=== PATIENT | female | born 1955 | race Caucasian/White ===

== ENCOUNTER → 2018-05-25 | Day surgery (SDC) | payer OTHER ==
[2018-05-25 11:51] VITALS: RESP 12; TEMP 98.3
[2018-05-25 13:02] VITALS: BP 119/76; PULSE 76
--- NOTE | 2018-05-25 17:33 | USB ---
EXAMINATION TYPE: US biopsy breast VAD LT, Postprocedure MG diagnostic mammo LT wo CAD DATE OF EXAM: 05/25/2018 CLINICAL HISTORY: 62-year-old female N60.02 Cyst of left breast. Referred for ultrasound-guided biopsy. TECHNIQUE: Ultrasound guided core biopsy of the left breast. COMPARISON: Outside exams from 04/17/2018 and 04/13/2018 FINDINGS: The procedure of ultrasound guided core biopsy was explained to the patient. Benefits, alternatives, and risks were discussed. An informed consent was then obtained. The patient was placed in supine positioning for imaging and for the procedure. The overlying skin was prepped and draped in usual sterile fashion. Lidocaine buffered with bicarbonate was used as anesthetic into the skin and subcutaneous tissue up to area of concern in the 2:00 left breast. Of note, the lesion in question had a more cystic appearance on the present exam. This still appeared irregular in shape so we continued with biopsy. Under ultrasound guidance, a 13-gauge vacuum-assisted mammotome Elite biopsy gun device was used to obtain 4 core samples. Following this, a ribbon clip was left in lesion. The lesion collapsed after the first 2 samples which further suggests a cyst. The patient tolerated the procedure well without any immediate complication. The patient was kept in the radiology department for short stay after the procedure and then discharged home in stable condition. Post procedure mammogram shows the ribbon clip in the upper outer quadrant near the area of focal asymmetry. IMPRESSION: Successful, uncomplicated ultrasound guided core biopsy of area of concern in the 2:00 left breast, full pathology results to follow. We note that the lesion appeared more cystic on the present exam and collapsed after the first 2 passes suggesting a benign etiology. Pathology Results: Benign BREAST, LEFT, 2:00, ULTRASOUND GUIDED CORE BIOPSY: Fibrocystic changes including cysts, fibrosis, adenosis, aprocine metaplasia and mild usual type ductal hyperplasia. Recommendation Follow up mammogram and ultrasound of the left breast in 6 months. STEPH
== END ==
LOC: RADUSWWP 11:20
PROVIDERS: ATTEND Family Medicine
DX: N60.32 Fibrosclerosis of left breast (principal); N60.22 Fibroadenosis of left breast; N60.82 Other benign mammary dysplasias of left breast; N60.92 Unspecified benign mammary dysplasia of left breast; Z88.0 Allergy status to penicillin; Z88.2 Allergy status to sulfonamides
CPT/HCPCS: 88305; 77065; 19083; A4648; J2001

== ENCOUNTER → 2019-06-22 | Outpatient (CLI) | payer OTHER ==
--- NOTE | 2019-06-22 11:03 | MM ---
Reason for exam: additional evaluation requested from prior study. Last mammogram was performed 1 year and 1 month ago. History: Patient is postmenopausal. Benign US biopsy breast VAD LT of the left breast, May 25, 2018. Physical Findings: Nurse did not find any significant physical abnormalities on exam. MG Diagnostic Mammo w CAD BRIGIDO Bilateral CC and MLO view(s) were taken. Prior study comparison: May 25, 2018, left breast MG diagnostic mammo LT wo CAD. The breast tissue is heterogeneously dense. This may lower the sensitivity of mammography. There is a right upper outer quadrant middle depth mass, increased in size from prior of 2017, now 1.5 x 1.3cm. Left upper outer quadrant biopsy marker. Right lateral anterior depth asymmetry. These results were verbally communicated with the patient and result sheet given to the patient on 06/22/19. ASSESSMENT: Incomplete: need additional imaging evaluation, BI-RAD 0 RECOMMENDATION: Ultrasound of both breasts. (upper outer quadrant)
--- NOTE | 2019-06-22 11:17 | USB ---
Reason for exam: additional evaluation requested from prior study. History: Patient is postmenopausal. Benign US biopsy breast VAD LT of the left breast, May 25, 2018. US Breast Limited BILAT Right limited breast ultrasound including focal area of concern, retroareolar and axilla demonstrates a 1.0 x 0.7 x 0.8cm lesion at 9 o'clock anechoic although enhancement is suboptimal for size and growth from prior, aspiration recommended and a 0.6 x 0.3 x 0.6cm mixed lesion at 10 o'clock, appears as a complicated cyst. Left limited breast ultrasound including focal area of concern, retroareolar and axilla demonstrates a 0.3 x 0.4 x 0.3cm lesion too small to characterize at 1 o'clock, likely a small cyst, a clip at 2 o'clock and a 0.5 x 0.3 x 0.5cm mixed lesion at 2 o'clock, appears as a complicated cyst. These results were verbally communicated with the patient and result sheet given to the patient on 06/22/19. ASSESSMENT: Suspicious, BI-RAD 4 RECOMMENDATION: Aspiration of the right breast. Called Dr. Levi's office with mammographic findings. Aspiration scheduled for 07/12/19 at 8:00. PRELIMINARY REPORT CALLED AND FAXED TO DR. LEVI ON 06/22/19.
== END | disposition home or self-care (01) ==
LOC: RADMAMWWP 08:24
PROVIDERS: ATTEND Family Medicine
DX: R92.8 Other abnormal and inconclusive findings on diagnostic imaging of breast (principal)
CPT/HCPCS: 77066

== ENCOUNTER → 2019-07-12 | Day surgery (SDC) | payer OTHER ==
[2019-07-12 07:27] VITALS: RESP 16
[2019-07-12 08:45] VITALS: BP 147/83; PULSE 81; TEMP 98.4
--- NOTE | 2019-07-12 09:09 | USB ---
EXAMINATION TYPE: US breast aspiration single RT, MG diagnostic mammo RT wo CAD DATE OF EXAM: 07/12/2019 COMPARISON: Bilateral breast ultrasound dated 06/22/2019 CLINICAL HISTORY: R92.8 Abnormal mammogram. FINDINGS: The procedure of ultrasound guided aspiration was explained to the patient. Benefits, alternatives, and risks were discussed. An informed consent was then obtained. Preprocedural timeout was performed. The patient was placed in supine positioning for imaging and for the procedure. The overlying skin was prepped and draped in usual sterile fashion. 10 cc of 1% lidocaine was used as anesthetic into the skin and subcutaneous tissue up to the probable cyst measuring 1.0 cm at the 9:00 position in the right breast. Under ultrasound guidance, an 18-gauge spinal needle was used to aspirate the cyst within the initial pass yielding approximately 1.5 cc of blackish thin fluid. Following this, a coil-shaped biopsy marker was left at the site of aspiration. The patient tolerated the procedure well without any immediate complication. The patient was kept in the radiology department for short stay after the procedure and then discharged home in stable condition. Post procedure mammogram shows the coil-shaped biopsy marker at the site of the resolved right breast mass. IMPRESSION: Successful, uncomplicated ultrasound guided cyst aspiration of a 1 cm cystic mass at the 9:00 position in the right breast yielding scant blackish fluid, full pathology results to follow. Pathology Results: Benign RIGHT BREAST CYST ASPIRATE: Cyst fluid with hemorrhage and abundant acute inflammation suggestive of breast abscess/duct abscess with numerous mildly atypical epithelioid cells likely consistent with reactive duct lining cells or reactive duct lining cells with apocrine metaplasia. If clinically appropriate, treatment/resolution of the acute inflammatory cyst with continued clinical surveillance/biopsy if a residual mass lesion is seen. Recommendation Follow up ultrasound of the right breast in 6 months. Collapse of entire cyst on aspiration. MTDD
== END ==
LOC: RADUSWWP 07:07
PROVIDERS: ATTEND Family Medicine
DX: N60.01 Solitary cyst of right breast (principal)
CPT/HCPCS: 88108; 88305; 77065; 76942; 19000; A4648; J2001

== ENCOUNTER → 2020-04-24 | Outpatient (CLI) | payer OTHER ==
--- NOTE | 2020-04-24 08:23 | USB ---
Reason for exam: follow-up at short interval from prior study. History: Patient is postmenopausal. Benign US breast aspiration single RT of the right breast, July 12, 2019. Benign US biopsy breast VAD LT of the left breast, May 25, 2018. Physical Findings: Nurse Summary: all soft, nodular, movable (nurse ts). US Breast Limited RT Technologist: Raven Lee Right limited breast ultrasound including focal area of concern, retroareolar and axilla demonstrates a 0.5 x 0.6 x 0.4cm oval, cystic lesion at 12 o'clock internal echoes likely debris. Scanned 9-12 o'clock. Annual exam can be performed in diagnostic clinic. These results were verbally communicated with the patient and result sheet given to the patient on 04/24/20. ASSESSMENT: Probably benign, BI-RAD 3 RECOMMENDATION: Follow-up diagnostic mammogram of both breasts in 2 months. Back on schedule for June 2020.
== END | disposition home or self-care (01) ==
LOC: RADUSWWP 07:05
PROVIDERS: ATTEND Family Medicine
DX: R92.8 Other abnormal and inconclusive findings on diagnostic imaging of breast (principal)

== ENCOUNTER → 2020-05-13 | Outpatient (CLI) | payer OTHER ==
--- NOTE | 2020-05-13 17:15 | MR ---
EXAMINATION TYPE: MR iac wo/w con DATE OF EXAM: 05/13/2020 COMPARISON: None HISTORY: Acoustic nerve disorder CONTRAST: Standard multiplanar, multisequence MRI departmental protocol utilizing 13 mL intravenous Gadavist ga dolinium contrast. Ventricles have normal size. There is no mass effect nor midline shift. There is no sign of intracran ial hemorrhage. Diffusion images show no evidence of an acute infarct. Brainstem is intact. The carlson- white matter structures have fairly normal signal pattern. There is no evidence of cerebral edema. Th e internal auditory canals appear normal. There is no evidence of cerebellopontine angle mass. Acoust ic and vestibular nerves have normal size. Contrast images show no pathologic enhancement. Corpus callosum is intact. Sella turcica appears normal. Optic chiasm is normal. Pituitary stalk is i n the midline. IMPRESSION: Normal MR scan of the brain. No evidence of posterior fossa abnormality.
== END | disposition home or self-care (01) ==
LOC: RADMRIMAIN 08:05
PROVIDERS: ATTEND Otolaryngology
DX: H93.3X2 Disorders of left acoustic nerve (principal)
CPT/HCPCS: 70553; A9585

== ENCOUNTER → 2020-08-08 | Outpatient (CLI) | payer OTHER ==
--- NOTE | 2020-08-08 10:04 | MM ---
Reason for exam: additional evaluation requested from prior study. Last mammogram was performed 1 year and 1 month ago. History: Patient is postmenopausal. Benign US breast aspiration single RT of the right breast, July 12, 2019. Benign US biopsy breast VAD LT of the left breast, May 25, 2018. Physical Findings: Nurse did not find any significant physical abnormalities on exam. MG Diagnostic Mammo w CAD BRIGIDO Bilateral CC and MLO view(s) were taken. Prior study comparison: July 12, 2019, right breast MG diagnostic mammo RT wo CAD. June 22, 2019, bilateral MG diagnostic mammo w CAD BRIGIDO. The breast tissue is heterogeneously dense. This may lower the sensitivity of mammography. Benign appearing calcifications in the left breast. Previous mammotome biopsy in the right and left breast. There is chronic nodularity in the right breast. These results were verbally communicated with the patient and result sheet given to the patient on 08/08/20. ASSESSMENT: Benign, BI-RAD 2 RECOMMENDATION: Routine screening mammogram of both breasts in 1 year.
== END | disposition home or self-care (01) ==
LOC: RADMAMWWP 07:42
PROVIDERS: ATTEND Family Medicine
DX: R92.8 Other abnormal and inconclusive findings on diagnostic imaging of breast (principal)
CPT/HCPCS: 77066

== ENCOUNTER → 2021-08-16 | Outpatient (CLI) | payer OTHER ==
--- NOTE | 2021-08-17 13:51 | MM ---
Reason for exam: screening (asymptomatic). Last mammogram was performed 1 year ago. History: Patient is postmenopausal. Benign US breast aspiration single RT of the right breast, July 12, 2019. Benign US biopsy breast VAD LT of the left breast, May 25, 2018. Physical Findings: A clinical breast exam by your physician is recommended on an annual basis and results should be correlated with mammographic findings. MG 3D Screening Mammo W/Cad Bilateral CC and MLO view(s) were taken. Prior study comparison: August 08, 2020, bilateral MG diagnostic mammo w CAD BRIGIDO. July 12, 2019, right breast MG diagnostic mammo RT wo CAD. The breast tissue is heterogeneously dense. This may lower the sensitivity of mammography. Stable benign calcifications. There is no discrete abnormality. No significant changes when compared with prior studies. ASSESSMENT: Benign, BI-RAD 2 RECOMMENDATION: Routine screening mammogram of both breasts in 1 year.
== END | disposition home or self-care (01) ==
LOC: RADMAMWWP 08:39
PROVIDERS: ATTEND Family Medicine
DX: Z12.31 Encounter for screening mammogram for malignant neoplasm of breast (principal)
CPT/HCPCS: 77063; 77067

== ENCOUNTER → 2022-09-04 | Outpatient (CLI) | payer MEDICARE ==
--- NOTE | 2022-09-04 09:25 | BD ---
EXAMINATION TYPE: Axial Bone Density DATE OF EXAM: 09/04/2022 COMPARISON: BASELINE CLINICAL HISTORY: 66 years old Female. ICD-10 CODE: Z13.820 SCREENING FOR OSTEOPOROSIS Height: 65 Weight: 268 FRAX RISK QUESTIONS: Alcohol (3 or more units per day): NO Family History (Parent hip fracture): YES MOTHER History of Fracture in Adulthood: NO Secondary Osteoporosis: NO Rheumatoid Arthritis: NO Current Tobacco Use: NO RISK FACTORS HISTORY OF: Family History of Osteoporosis: NO Active: YES Diet low in dairy products/other sources of calcium: NO Postmenopausal woman: YES 48 YRS OLD Lost more than 2 inches in height since high school: NO Frequent falls: NO Poor Health: NO MEDICATIONS: Thyroid Medications: YES Which medication: Synthroid How Lon+YEARS Additional Medications: YES VIT D , CHOLESTEROL , HBP EXAM MEASUREMENTS: Bone mineral densitometry was performed using the [employer]pex System. Bone mineral density as measured about the Lumbar spine is: ----- L1-L4(G/cm2): 1.174 T Score Values are as follows: ----- L1: -0.8 ----- L2: -0.1 ----- L3: -0.6 ----- L4: 1.0 ----- L1-L4: -0.1 Bone mineral density has: BASELINE Bone mineral density about the R hip (g/cm2): 1.186 Bone mineral density about the L hip (g/cm2): 1.237 T Score values are as follows: -----R Neck: 0.2 -----L Neck: 0.7 -----R Total: 1.4 -----L Total: 1.8 Bone mineral density BASELINE FRAX%s: The graph provided illustrates a 10.9% chance for a major osteoporotic fx and a 0.2% chance f or the hips probability for fx in 10 years time. IMPRESSION: Normal (Values between +1 and -1 indicate normal bone mass). Consider repeating this study in 5 year s or sooner if there is some new clinical indication. NOTE: T-SCORE=SD OF THE YOUNG ADULT MEAN.
--- NOTE | 2022-09-05 08:35 | MM ---
Reason for Exam: Screening (asymptomatic). Last screening mammogram was performed 12 month(s) ago. Patient History: Menarche at age 11. First Full-Term at age 31. Late child-bearing (after 30). Postmenopausal. 07/12/2019, Benign Cyst Aspiration on the right side. 05/25/2018, Benign Core Biopsy on the left side. Risk Values: Shannan 5 year model risk: 3.0%. NCI Lifetime model risk: 11.0%. Prior Study Comparison: 07/12/2019 Right Diagnostic Mammogram, [facility]. 08/08/2020 Bilateral Diagnostic Mammogram, [facility]. 08/16/2021 Bilateral Screening Mammogram, [facility]. Tissue Density: The breast tissue is heterogeneously dense. This may lower the sensitivity of mammography. Findings: Analyzed By CAD. Bilateral biopsy clips. There is no suspicious group of microcalcifications or new suspicious mass in either breast. Overall Assessment: Negative, BI-RAD 1 Management: Screening Mammogram of both breasts in 1 year. A clinical breast exam by your physician is recommended on an annual basis and results should be correlated with mammographic findings. [facility] will attempt to contact patient to return for supplemental views and ultrasound if indicated. Electronically signed and approved by: [place] DO
== END | disposition home or self-care (01) ==
LOC: RADMAMWWP 08:09
PROVIDERS: ATTEND Family Medicine
DX: Z12.31 Encounter for screening mammogram for malignant neoplasm of breast (principal); Z13.820 Encounter for screening for osteoporosis; Z78.0 Asymptomatic menopausal state
CPT/HCPCS: 77063; 77067; 77080

== ENCOUNTER → 2023-10-14 | Outpatient (CLI) | payer MEDICARE ==
--- NOTE | 2023-10-15 10:38 | MM ---
Reason for Exam: Screening (asymptomatic). Last mammogram was performed 1 year(s) and 2 month(s) ago. Patient History: Menarche at age 11. First Full-Term at age 31. Late child-bearing (after 30). Postmenopausal. 07/12/2019, Benign Cyst Aspiration on the right side. 05/25/2018, Benign Core Biopsy on the left side. Risk Values: Shannan 5 year model risk: 3.0%. NCI Lifetime model risk: 10.6%. Prior Study Comparison: 08/08/2020 Bilateral Diagnostic Mammogram, [facility]. 08/16/2021 Bilateral Screening Mammogram, [facility]. 09/04/2022 Bilateral MG 3D screening mammo w/cad, [facility]. Tissue Density: The breast tissue is almost entirely fat. Findings: Analyzed By CAD. Left: There is no suspicious group of microcalcifications or new suspicious mass. Right: New asymmetry seen on one view only RCC 9.5 mm in diameter up to 15 cm in the nipple at posterior depth slightly medial. Overall Assessment: Incomplete: need additional imaging evaluation, BI-RAD 0 Management: Diagnostic Breast Ultrasound of the right breast. [facility] will attempt to contact patient to return for supplemental views and ultrasound if indicated. Patient should continue monthly self-breast exams. A clinical breast exam by your physician is recommended on an annual basis. This exam should not preclude additional follow-up of suspicious palpable abnormalities. Note on Shannan scores and lifetime risk: 1. A Shannan score greater than 3% is considered moderate risk. If this is the case, consider specialist referral to assess eligibility for a risk reducing agent. 2. If overall lifetime risk for the development of breast cancer is 20% or higher, the patient may qualify for future screening with alternating mammogram and breast MRI. Electronically signed and approved by: [place] DO
== END | disposition home or self-care (01) ==
LOC: RADMAMWWP 07:06
PROVIDERS: ATTEND Family Medicine
DX: Z12.31 Encounter for screening mammogram for malignant neoplasm of breast (principal); Z78.0 Asymptomatic menopausal state
CPT/HCPCS: 77063; 77067

== ENCOUNTER → 2023-10-16 | Outpatient (CLI) | payer MEDICARE ==
--- NOTE | 2023-10-16 11:57 | USB ---
Reason for Exam: Additional evaluation requested from abnormal screening. Patient History: Menarche at age 11. First Full-Term at age 31. Late child-bearing (after 30). Postmenopausal. 07/12/2019, Benign Cyst Aspiration on the right side. 05/25/2018, Benign Core Biopsy on the left side. Risk Values: Shannan 5 year model risk: 3.0%. NCI Lifetime model risk: 10.6%. Technique: Method: Targeted. Doppler: Color. Patient Position: Supine. Prior Study Comparison: 08/16/2021 Bilateral Screening Mammogram, [facility]. 09/04/2022 Bilateral MG 3D screening mammo w/cad, [facility]. 10/14/2023 Bilateral MG 3D screening mammo w/cad, [facility]. Findings: The upper section of the breast of the right breast, the area of palpable concern of the right breast, the axilla of the right breast and the retroareolar of the right breast were scanned. Complex cystic lesions noted right breast 12:00 3 cm from the nipple measuring 6 mm and 6 mm respectively. Additional subcutaneous complex cystic lesion at the 5:00 position with internal debris measuring 1.3 cm and approximately 15 cm from the nipple. No solid masses are seen. Overall Assessment: Probably benign, BI-RAD 3 Management: Diagnostic Breast Ultrasound of the right breast in 6 months. A clinical breast exam by your physician is recommended on an annual basis and results should be correlated with mammographic findings. This exam should not preclude additional follow-up of suspicious palpable abnormalities. Results were given to the patient verbally at the time of exam. Electronically signed and approved by: Cory Beaver M.D. Radiologis
== END | disposition home or self-care (01) ==
LOC: RADUSWWP 11:00
PROVIDERS: ATTEND Family Medicine
DX: R92.8 Other abnormal and inconclusive findings on diagnostic imaging of breast (principal); Z78.0 Asymptomatic menopausal state

== ENCOUNTER → 2024-05-31 | Outpatient (CLI) | payer MEDICARE, OTHER ==
--- NOTE | 2024-05-31 09:01 | USB ---
Reason for Exam: Follow-up at short interval from prior study. Patient History: Menarche at age 11. First Full-Term at age 31. Late child-bearing (after 30). Postmenopausal. 07/12/2019, Benign Cyst Aspiration on the right side. 05/25/2018, Benign Core Biopsy on the left side. Risk Values: Shannan 5 year model risk: 3.0%. NCI Lifetime model risk: 10.2%. Technique: Method: Targeted. Prior Study Comparison: 08/16/2021 Bilateral Screening Mammogram, [facility]. 09/04/2022 Bilateral MG 3D screening mammo w/cad, [facility]. 10/14/2023 Bilateral MG 3D screening mammo w/cad, [facility]. Findings: The upper section of the breast of the right breast, the lower section of the breast of the right breast, the axilla of the right breast and the retroareolar of the right breast were scanned. There is a 2 hypoechoic areas at the 12:00 position 3 cm the nipple. The first measures 0.9 x 0.7 x 0.6 cm. The second measures 0.5 x 0.4 x 0.6 cm. These were present previously. The larger may be minimally larger appears to be related to fluid volume. Continued monitoring with the tip follow-up study in 6 months is recommended. The previous posterior finding 5:00 position has resolved. Patient stated had spontaneous drainage after previous exam. Overall Assessment: Probably benign, BI-RAD 3 Management: Screening Mammogram of both breasts in 6 months. Diagnostic Breast Ultrasound of the right breast in 6 months. A clinical breast exam by your physician is recommended on an annual basis and results should be correlated with mammographic findings. This exam should not preclude additional follow-up of suspicious palpable abnormalities. Results were given to the patient verbally at the time of exam. [facility], , 05/31/2024 8:53 AM. Electronically signed and approved by: Steven Gautam D.O. Radiologis
== END | disposition home or self-care (01) ==
LOC: RADUSWWP 08:22
DX: R92.8 Other abnormal and inconclusive findings on diagnostic imaging of breast (principal); R68.89 Other general symptoms and signs; Z78.0 Asymptomatic menopausal state